=== PATIENT | male | born 1990 | race Caucasian/White ===

== ENCOUNTER 2023-05-26 11:11 | Outpatient (OUT) | payer OTHER, SELFPAY ==
--- NOTE | 2023-05-26 | XR_ITS ---
The [address] [address] Patient Name: AHMET VILLASEÑOR MRN: [id number] date: 1990 Sex: M Assigned Patient Location: Current Patient Location: Accession/Order Number: [id number] Exam Date: 05/26/2023 12:09 Report Date: 05/27/2023 07:02 At the request of: CHECO INGRAM Procedure: XR ribs LT 2V EXAMINATION: XR ribs LT 2V HISTORY: LEFT RIB PAIN COMPARISON: No relevant comparison available. FINDINGS: RIBS: Fractures of the left posterior lateral fourth through ninth ribs LUNGS: 2.1 cm left apical pneumothorax. Left basilar infiltrate and effusion consider hemothorax OTHER: Results initiated through operations XR/XR ribs LT 2V IMPRESSION: Fractures of the left posterior lateral fourth through ninth ribs with small left hemopneumothorax Electronically authenticated by: KIARRA [place] Date: 05/27/2023 07:02
== END 2023-05-26 11:12 | disposition home or self-care (01) ==
LOC: EC 11:17
PROVIDERS: Family Provider Family Medicine; PCP Orthopaedic Surgery; Visit Provider Orthopaedic Surgery
DX: R07.81 Pleurodynia (principal); S22.42XA Multiple fractures of ribs, left side, initial encounter for closed fracture
CPT/HCPCS: 71100